=== PATIENT | female | born 1965 | race Caucasian/White ===

== ENCOUNTER 2016-08-10 15:10 | Emergency (ER) | payer OTHER ==
[~2016-08-10] VITALS: Ht 170.2 cm; Wt 63.5 kg
--- NOTE | 2016-08-10 15:17 | NUR ---
DR LEVIN AT THE BEDSIDE FOR EVAL AND EXAM.
--- NOTE | 2016-08-10 15:39 | NUR ---
Patient discharged to home in stable conditon. Written and verbal after care instructions given. Patient verbalizes understanding of instructions.
[2016-08-10 15:40] VITALS: BP 122/76
== END 2016-08-10 15:40 | disposition home or self-care (01) ==
LOC: ER 15:11
DX: R07.89 Other chest pain (principal); F17.210 Nicotine dependence, cigarettes, uncomplicated
CPT/HCPCS: 93005; A4663

== ENCOUNTER 2017-08-14 10:06 | Emergency (ER) | payer OTHER ==
[~2017-08-14] VITALS: Ht 170.2 cm; Wt 74.8 kg
--- NOTE | 2017-08-14 10:25 | NUR ---
PATIENT WAS SEEN BY DR WHITE FOR EYE SWELLING AND ITCHINESS. DC AND FOLLOW UP INSTRUCTIONS GIVEN AND EXPLAINED TO PT WHO STATES SHE UNDERSTANDS ALL INSTRUCTIONS.
== END 2017-08-14 10:38 | disposition home or self-care (01) ==
LOC: ER 10:07
DX: L25.0 Unspecified contact dermatitis due to cosmetics (principal); F17.200 Nicotine dependence, unspecified, uncomplicated
CPT/HCPCS: 99282; A4663